=== PATIENT | female | born 1935 | race Caucasian/White ===

== ENCOUNTER 2024-02-24 05:17 | Inpatient (IN) | payer MEDICARE, BC, SELFPAY ==
[2024-02-23 22:32] VITALS: BP 133/68
[2024-02-23 22:52] LABS: Urine Albumin Negative (Neg - Trace); Urine Bilirubin Negative (Negative); Urine Character Very Cloudy (Clear); Urine Color Yellow; Urine Glucose Negative (Negative); Urine Ketone Negative (Negative); Urine Leukocyte 2+ (Negative); Urine Nitrite Positive (Negative); Urine Occult Blood 1+ (Negative); Urine Urobilinogen Negative (Neg - 1+); Urine pH 6.5 (5.0-9.0)
[2024-02-23 23:10] LABS: % Basophils 0.6 % (0-2); % Eosinophils 0.6 % (0-6); % Immature Granulocytes 0.9 % (0-0.5); % Lymphocytes 4.1 % (20.5-51.1); % Neutrophils 91.8 % (42.2-75.2); Absolute Basophils 0.1 10^3/uL (0-0.2); Absolute Eosinophils 0.1 10^3/uL (0-0.7); Absolute Immature Granulocytes 0.1 10^3/uL (0-0.05); Absolute Lymphocytes 0.7 10^3/uL (1.2-3.4); Absolute Monocytes 0.3 10^3/uL (0.1-0.6); Absolute Neutrophils 14.6 10^3/uL (1.4-6.5); Hematocrit 42.1 % (37.0-47.0); Hemoglobin 14.6 g/dL (12.0-16.0); Mean Corp Hgb Conc. 34.7 g/dL (33.0-37.0); Mean Corpuscular Hgb 35.3 pg (27.0-31.0); Mean Corpuscular Volume 101.7 fL (81.0-99.0); Mean Platelet Volume 9.7 fL (7.4-10.4); Nucleated Red Blood Cells % 0 %; Platelet Count 136 10^3/uL (130-400); Red Blood Cell Count 4.14 10^6/uL (4.20-5.40); Red Cell Dist. Width 13.9 % (11.5-14.5); White Blood Cell Count 15.9 10^3/uL (4.8-10.8)
[2024-02-23 23:14] LABS: Lactic Acid 1.8 mmol/L (0.7-2.0)
[2024-02-23 23:16] LABS: Urine Bacteria Many (Negative); Urine Red Blood Cell 0-2 /HPF (0-2); Urine White Cell 30-40 /HPF (0-5)
[2024-02-23 23:16] LABS: ALT (SGPT) 26 U/L (0-35); AST (SGOT) 47 U/L (14-36); Albumin 3.3 g/dl (3.5-5.0); Alkaline Phosphatase 137 U/L (38-126); Blood Urea Nitrogen 14 mg/dl (7-17); Calcium 9.3 mg/dl (8.4-10.2); Carbon Dioxide 27 mmol/L (22-30); Chloride 103 mmol/L (98-107); Glucose 144 mg/dl (70-99); Potassium 3.8 mmol/L (3.5-5.1); Sodium 138 mmol/L (135-145); Total Bilirubin 2.2 mg/dl (0.2-1.3); Total Protein 6.7 g/dl (6.3-8.2); eGFR > 60.00
[2024-02-23] MEDS: NSS 1000 IV (23:18)
[2024-02-23] MEDS: ZOSYN 100 IV (23:30)
--- NOTE | 2024-02-23 23:30 | ED.GENMED ---
History of Present Illness
General
Chief Complaint: Change in Mental Status
Time Seen by Provider: 02/23/24 22:51
History of Present Illness
History of Present Illness:
88-year-old female with history of UTI, COPD, GERD, high blood pressure presenting to the emergency department for change in mental status. Patient arrives from assisted living facility. They note the patient had a fall out of bed, unwitnessed,
concern for left lower extremity skin tear. However when they went to go check on her again, felt that she had a change in her mental status. When son saw her, felt that she was acutely confused, which she has been in the past with urinary tract
infections. Patient on arrival febrile, without knowledge from nursing facility. Son reports that she is AAOx3 at baseline. Patient unable to comply with any additional history given clinical condition
Past History
Past History
ED Past Medical History: HTN and Other (Arthritis, skin cancer.)
ED Past Surgical History: Cholecystectomy, Gynecological (Hysterectomy), Orthopedic (Knee replacements, hip replacement.) and Other (Bladder surgery)
Social History
Tobacco: Non-smoker
Alcohol: None
Drug: None
Living: alone
Employment: Retired
Family History
Family History: Other (Noncontributory)
Phy Exam
Physical Exam
Physical Exam:
General: Dry mucous membrane, restless
HEENT: protecting airway
Neck: appears supple
CV: Tachycardic, regular rhythm, no evidence of cyanosis
Resp: No accessory muscle use, no increased work of breathing, lungs clear to auscultation bilaterally
Abd: Soft and non-distended, no tenderness to palpation, normal bowel sounds
Extremities: No deformities, skin tear to the anterior frazier of the left lower extremity. No obvious deformity or swelling
Neuro: Disoriented to place and time
: deferred
Rectal: deferred
Psych: Normal affect
Skin: Intact
Sepsis
Sepsis Screening
Sepsis Assessment: Sepsis
Sepsis Screen
Sepsis Screen: Sepsis
Date: 02/24/24
Time: 02:57
Course
Orders/Labs/Results
Orders:
Orders
02/23/24 22:31
Electrocardiogram (*1) Urgent
Reason for Study: Other
Other Reason for Exam: Possible Sepsis
Cardiac Monitoring- Treatment ONCE
EKG- Treatment ONCE
IV Insert/Care/Rem.- Treatment PRN
Pulse Ox/cont/shift [RESP] Urgent
Quantity: 1
Special Instructions: CONTINUOUS
02/23/24 22:45
Urinalysis Reflex To Culture Urgent
Date Specimen was Collected: 02/23/24
Time Specimen was Collected: 22:31
Urine Microscopic Reflex Cult Urgent
Urine Culture Urgent
ANAY Source: U
Specimen Description:
Date Specimen was Collected: 02/23/24
Time Specimen was Collected: 22:31
02/23/24 22:49
Complete Blood Count/With Diff Urgent
Comprehensive Metabolic Panel Urgent
Lactic Acid Q4H
Comment: ON ICE, CANCEL 2ND ORDER IF FIRST LACTIC ACID LEVEL <2
02/23/24 22:53
0.9% Sodium Chloride 1000 ml [Nss] 1,000 ml IV BOLUS
02/23/24 23:13
Acetaminophen [Tylenol] 1,000 mg PO NOW STA
Piperacillin/Tazo 4.5 Gram [Zosyn] 4.5 gram in 100 ml IV NOW
02/23/24 23:23
Blood Culture Routine
ANAY Source: Blood/Venous
Specimen Description:
Blood Culture Urgent
ANAY Source: Blood/Venous
Specimen Description:
02/24/24 00:02
CT Head W/o Iv Contrast Urgent
Reason For Exam: fall, unwitnessed
02/24/24 02:08
0.9% Sodium Chloride 1000 ml [Nss] 1,000 ml IV BOLUS
Abnormal Lab Results
02/23/24 02/23/24
22:45 22:49
WBC 15.9 H 10^3/uL
(4.8-10.8)
RBC 4.14 L 10^6/uL
(4.20-5.40)
MCV 101.7 H fL
(81.0-99.0)
MCH 35.3 H pg
(27.0-31.0)
Abs Immat Gran (auto) 0.1 H 10^3/uL
(0-0.05)
Absolute Neuts (auto) 14.6 H 10^3/uL
(1.4-6.5)
Absolute Lymphs (auto) 0.7 L 10^3/uL
(1.2-3.4)
Immature Gran % 0.9 H %
(0-0.5)
Neutrophils % 91.8 H %
(42.2-75.2)
Lymphocytes % 4.1 L %
(20.5-51.1)
Glucose 144 H mg/dl
(70-99)
Total Bilirubin 2.2 H mg/dl
(0.2-1.3)
AST 47 H U/L
(14-36)
Alkaline Phosphatase 137 H U/L
(38-126)
Albumin 3.3 L g/dl
(3.5-5.0)
Ur Occult Blood Reflex 1+ A
(Negative)
Urine Nitrite (Reflex) Positive A
(Negative)
Leukocyte Esterase Rfl 2+ A
(Negative)
Urine WBC (Reflex) 30-40 A /HPF
(0-5)
Urine Bacteria (Reflex) Many A
(Negative)
02/23/24 22:49
02/23/24 22:49
Vital Signs
Initial and Last Documented VS:
Initial Vital Signs
Temp Pulse Resp BP Pulse Ox
102 F H 121 24 133/68 95
02/23/24 22:32 02/23/24 22:32 02/23/24 22:32 02/23/24 22:32 02/23/24 22:32
Last Documented Vital Signs
Temp Pulse Resp BP Pulse Ox
97.8 F 94 30 99/55 93
02/24/24 00:53 02/24/24 02:38 02/24/24 02:38 02/24/24 02:38 02/24/24 02:35
MDM/Problems Addressed
MDM/Problems Addressed:
88-year-old female with history of COPD, hypertension, hyperlipidemia, frequent UTIs presenting for fall, change in mental status. Vital signs on arrival significant for fever and tachycardia.
On exam patient appears dehydrated, dry mucous membranes. She is restless, disoriented. Son is at bedside, reports that she was last normal around 2 PM. He reports that she has had the same behavior in the past with urinary tract infections. In
the setting of fever and tachycardia, meeting SIRS criteria. Suspect that patient's symptoms are secondary to underlying infection. Plan for laboratory analysis, blood cultures, urinalysis, lactic acid. Will start patient on IV fluids. Given
unwitnessed fall, will obtain CT brain, however no signs of head trauma. Only sign of trauma is skin tear to the left lower extremity without additional deformity or swelling.
23:30 -urine is positive for infection. Lactic acid within normal limits. Blood pressure remained stable, without concern for severe sepsis or septic shock. Will continue fluids as clinically indicated. Plan for admission after CT brain imaging.
Broad-spectrum antibiotics ordered.
*Critical Care Note
Total Time (30-74mins, 75-104mins- exclusive of procedures): 35
comment:
The high probability of a clinically significant, sudden or life threatening deterioration of the cardiovascular/distributive system(s) required my full and direct attention, intervention and personal management. The aggregate critical care time was
35 minutes. This time is in addition to time spent performing reported procedures but includes the following:
[x] Data Review and interpretation
[x] Patient assessment and monitoring of vital signs
[x] Documentation
[x] Medication orders and management
ED Attending Note
-
Portions of this chart may have been created with voice recognition software.� Occasional wrong word or��sound alike� substitutions may have occurred due to the inherent limitations of voice recognition software.
Discharge Plan
Departure
Patient Disposition: Admit
Date of Disposition: 02/24/24
Time of Disposition: 01:33
Presentation/result/management discussed w/ accepting MD/DO: Hospitalist
Condition: Fair
Discharge Problem:
Sepsis, Acute UTI, Altered mental status
Prescriptions:
No Action
losartan 25 MG tablet
25 mg PO DAILY
fluticasone propion-salmeterol [Wixela Inhub] 250-50 mcg/dose Blister With Device
1 inh INHALATION R BID
sennosides [senna] 8.6 mg Tablet
17.2 mg PO Q12H PRN (Reason: constipation)
sennosides [senna] 8.6 mg Tablet
8.6 mg PO DAILY
polyvinyl alcohol [Artificial Tears (polyvin alc)] 1.4 % Drops
1 drp BOTH EYES BID
aspirin 81 mg tablet,delayed release (DR/EC)
81 mg PO DAILY
bismuth subsalicylate [Pepto-Bismol] 262 mg/15 mL Suspension
524 mg PO Q3H PRN (Reason: heartburn/indigestion)
methenamine mandelate 1 gram tablet
1 g PO BID
ibuprofen 200 mg Tablet
400 mg PO Q6H PRN (Reason: inflammatory pain)
docusate sodium 100 mg Capsule
100 mg PO DAILY
pseudoephedrine HCl [Sudogest] 30 mg Tablet
30 mg PO Q6H PRN (Reason: sinuses)
furosemide 20 mg Tablet
20 mg PO .2X WEEKLY
metoprolol succinate 25 mg tablet extended release 24 hr
25 mg PO DAILY
ergocalciferol (vitamin D2) 1,250 mcg (50,000 unit) Capsule
1,250 mcg PO Q3W
nystatin 100,000 unit/gram Powder
1 applic TOPICAL Q12H PRN (Reason: redness to abd, folds, groin)
estradiol 0.01 % (0.1 mg/gram) cream
1 appful VAGINAL WESA
cranberry extract [Cranberry Concentrate] 500 mg capsule
500 mg PO DAILY
solifenacin 10 mg tablet
10 mg PO HS
Chloraseptic Sore Throat 6-10 mg Lozenge
1 estrella MUCOUS MEMBRANE Q2 PRN (Reason: sore throat)
omega 8-unh-uwm-fish oil [Fish Oil] 1,000 mg (120 mg-180 mg) Capsule
2 cap PO DAILY
OcuSoft Lid Scrub Pads, Medicated
1 pad TOPICAL DAILY
albuterol sulfate [Ventolin HFA] 90 MCG/PUFF HFA aerosol inhaler
2 puff inhalation Q12 PRN (Reason: copd)
Rx Instructions:
Please follow up with your PCP/ manager rn on this
primidone 50 mg Tablet
100 mg PO HS
acetaminophen [Tylenol] 325 mg Tablet
650 mg PO Q4H PRN (Reason: mild pain)
dextromethorphan-guaifenesin [Guaifenesin DM] 10-100 mg/5 mL Syrup
5 ml PO Q4H PRN (Reason: cough)
bisacodyl [Dulcolax (bisacodyl)] 10 mg Suppository
10 mg AK DAILY PRN (Reason: constipation)
Fleet Enema 19-7 gram/118 mL Enema
118 ml AK Q4D PRN (Reason: constipation)
clotrimazole 1 % Cream
1 applic TOPICAL BID
Rx Instructions:
groin and under breasts
Referrals:
Roberta Moreno MD [Family Provider] -
Interventions
Interventions:
*Risk Screen - Suicide Last Done: 02/23/24 22:32
*General Assessment Last Done: 02/23/24 22:32
*Neglect/Abuse Screening Last Done: 02/23/24 22:32
*ED COVID-19 Vaccine History Last Done: 02/23/24 22:32
ED- Pulmonary Assessment Last Done: 02/23/24 23:10
ED- Neurological Assessment Last Done: 02/23/24 23:10
ED- Cardiac Assessment Last Done: 02/23/24 23:10
ED Swallowing Screen Last Done: 02/23/24 23:10
Discharge Date and Time
Print Language: YAKUT
[2024-02-23] MEDS: TYLENOL 1000 MG PO (23:37)
[2024-02-23 23:41] VITALS: BP 121/69
[2024-02-24] VITALS (14 sets, daily range): BP systolic 91–139; BP diastolic 42–84; PULSE 81; O2SAT 98; BMI 37.8
[2024-02-24] MEDS: NSS 1000 IV ×3 (02:10→18:15)
[2024-02-24 03:50] LABS: COVID-19 Antigen Negative (Negative)
--- NOTE | 2024-02-24 04:43 | HPS.HSE ---
Family Physician
-
Family Physician: Roberta Moreno
Chief Complaint
-
Fall / Confusion
History of Present Illness
Patient is an 88y F with PMH significant for hypertension, DM-II and COPD who presents to ED for evaluation after fall at assisted living this evening. History obtained from patient, ED staff and review of AL documentation. Patient was found
down at [place] around 6:30PM. Fall was unwitnessed. Patient states that she was in her recliner and she fell when trying to get up to go to the bathroom. She had a noted wound / skin tear to the L lower leg but no other appreciable injuries / evident
trauma. Patent was felt to be more confused than usual as well and was sent to the ED for further evaluation and treatment.
In the ED, patient was noted to be febrile to 102 degrees. Son reports similar symptoms in the past related to infections.
At the time of my examination patient is awake and alert and perhaps mildly confused. She denies any pain. She denies any recent illness or complaints - including any urinary symptoms.
Medical History
Past Medical History
Past Medical History: Reports Other
Additional Past Medical History:
Hypertension
Obesity
COPD
DM-II
OAB
Past Surgical History: Reports Other
Additional Past Surgical History:
Hysterectomy
Cholecystectomy
TKA
PETEY
Social History
Tobacco: Non-smoker
Alcohol: None
Drug: None
Family History
Family History: Not pertinent
Allergies / Home Medications
Allergies reflects when Allergies were last updated in [facility].
Home Medications with original date entered in [facility]
Allergy/Medication List:
Allergies
Allergy/AdvReac Type Severity Reaction Status Date / Time
adhesive Allergy TAPE-BLISTE Verified 03/06/18 17:22
RS
caffeine Allergy PALPITATION Verified 03/06/18 17:22
S
codeine Allergy PALPITATION Verified 03/06/18 17:22
S
diphenhydramine HCl Allergy HYPERACTIVE Verified 03/06/18 17:22
[From Benadryl]
Iodinated Contrast Media Allergy Hives Verified 03/06/18 17:22
[Iodinated Contrast Media -
IV Dye]
iodine Allergy Unknown Verified 03/06/18 17:22
morphine Allergy prolonged Verified 03/06/18 17:22
awakening
after
dosing
pseudoephedrine Allergy PALPITATION Verified 03/06/18 17:22
S
Sulfa (Sulfonamide Allergy Hives Verified 03/06/18 17:22
Antibiotics)
Home Medications
losartan 25 mg tablet 25 mg PO DAILY Blood Pressure 02/20/14
albuterol sulfate 90 mcg/actuation aerosol inhaler (Ventolin HFA) 2 puff inhalation Q12 PRN copd 05/01/23
aspirin 81 mg tablet,delayed release 81 mg PO DAILY Blood Clot Prevention/Tx 05/01/23
benzocaine 6 mg-menthol 10 mg lozenges (Chloraseptic Sore Throat) 1 estrella mucous membrane Q2 PRN sore throat 05/01/23
bismuth subsalicylate 262 mg/15 mL oral suspension (Pepto-Bismol) 524 mg PO Q3H PRN heartburn/indigestion 05/01/23
cranberry extract 500 mg capsule (Cranberry Concentrate) 500 mg PO DAILY Supplement 05/01/23
docusate sodium 100 mg capsule 100 mg PO DAILY Constipation 05/01/23
ergocalciferol (vitamin D2) 1,250 mcg (50,000 unit) capsule 1,250 mcg PO Q3W Supplement 05/01/23
estradiol 0.01% (0.1 mg/gram) vaginal cream 1 appful vaginal WESA Hormonal Agent 05/01/23
eyelid cleanser combination 5 (OcuSoft Lid Scrub topical pads) 1 pad topical DAILY Eye Condition 05/01/23
fluticasone 250 mcg-salmeterol 50 mcg/dose blistr powdr for inhalation (Wixela Inhub) 1 inh inhalation R BID Lung/Breathing Issues 05/01/23
furosemide 20 mg tablet 20 mg PO .2X WEEKLY Fluid Retention/Swelling 05/01/23
ibuprofen 200 mg tablet 400 mg PO Q6H PRN inflammatory pain 05/01/23
methenamine mandelate 1 gram tablet 1 g PO BID Urinary Issue 05/01/23
metoprolol succinate 25 mg tablet,extended release 24 hr 25 mg PO DAILY Blood Pressure 05/01/23
nystatin 100,000 unit/gram topical powder 1 applic topical Q12H PRN redness to abd, folds, groin 05/01/23
omega 0-dqo-gvl-fish oil 1,000 mg (120 mg-180 mg) capsule (Fish Oil) 2 cap PO DAILY Supplement 05/01/23
polyvinyl alcohol 1.4 % eye drops (Artificial Tears (polyvinyl alcohol)) 1 drp BOTH EYES BID Eye Condition 05/01/23
pseudoephedrine HCl 30 mg tablet (Sudogest) 30 mg PO Q6H PRN sinuses 05/01/23
sennosides 8.6 mg tablet (senna) 8.6 mg PO DAILY Constipation 05/01/23
sennosides 8.6 mg tablet (senna) 17.2 mg PO Q12H PRN constipation 05/01/23
solifenacin 10 mg tablet 10 mg PO HS Urinary Issue 05/01/23
acetaminophen 325 mg tablet (Tylenol) 650 mg PO Q4H PRN mild pain 02/23/24
bisacodyl 10 mg rectal suppository (Dulcolax (bisacodyl)) 10 mg SC DAILY PRN constipation 02/23/24
clotrimazole 1 % topical cream 1 applic topical BID 02/23/24
dextromethorphan-guaifenesin 10 mg-100 mg/5 mL oral syrup 5 ml PO Q4H PRN cough 02/23/24
primidone 50 mg tablet 100 mg PO HS 02/23/24
sodium phosphates 19 gram-7 gram/118 mL enema (Fleet Enema) 118 ml SC Q4D PRN constipation 02/23/24
Review of Systems
-
History Source: Patient
A 12 point ROS was completed and negative except as noted: Yes
Constitutional: Reports Fatigue; Denies Fever or Chills
EENT: Denies Sore Throat
Respiratory: Denies Cough or Trouble Breathing
Cardiac: Denies Chest Pain or Palpitations
Abdomen/GI: Denies Abdominal Pain, Nausea, Vomiting or Diarrhea
: Denies Dysuria, Frequency or Flank Pain
Musculoskeletal: Denies Joint Pain or Edema
Skin: Reports Other (LLE wound)
Neurological: Denies Dizzy or Headache
Psych: Denies Depression or Anxiety
Physical Exam
Vital Signs
Vital Signs
Temp Pulse Resp BP Pulse Ox
97.8 F 85 15 95/55 97
02/24/24 00:53 02/24/24 04:00 02/24/24 04:00 02/24/24 04:00 02/24/24 04:00
Physical Exam
General: Other (88y F in no distress.)
HEENT: PERRLA and Other (Dry MM. Thick neck.)
Respiratory: Other (Decreased at bases - otherwise clear. No wheezing.)
Cardiac: S1/S2 and Tachycardia; No Murmur
GI: Soft, Non Tender, Non Distended and Normal Bowel Sounds
Genito-urinary: No costovertebral tender
Musculoskeletal: No Clubbing, No Cyanosis and Other (Chronic venous stasis skin changes. Skin tear L medial lower leg with dressing in place / mild strikethrough.)
Neuro: AO x 3 and Nonfocal/grossly intact
Laboratory Results
-
02/23/24 22:49
02/23/24 22:49
Laboratory Results
Lactic Acid Cancelled 02/24/24 02:45
Total Bilirubin 2.2 mg/dl (0.2-1.3) H 02/23/24 22:49
AST 47 U/L (14-36) H 02/23/24 22:49
ALT 26 U/L (0-35) 02/23/24 22:49
Alkaline Phosphatase 137 U/L (38-126) H 02/23/24 22:49
Impression/Plan
-
A/P: Patient is an 88y F with PMH significant for HTN, DM-II and COPD who presents to ED for evaluation of fall and noted confusion.
UTI
Sepsis secondary to the above
Acute TME secondary to the above
- Admit for further evaluation and treatment.
- Febrile to 102 and UA consistent with infection - though patient denies any urinary symptoms.
- Other evaluation unremarkable thus far (COVID, influenza, CXR, etc).
- IV abx with ceftriaxone pending culture data (patient received cephalosporins last admission here without issue - cephalosporins removed from allergy list).
- IVF support, antipyretics, etc.
- Follow for clinical improvement.
- Follow-up culture data and adjust regimen as appropriate.
Fall at Home
LLE Skin Tear
Chronic Venous Stasis Skin Changes
- Patient notes that she 'slid' from her recliner while trying to get up to use the bathroom.
- Found down by staff and noted to have L lower leg skin tear.
- Wound Care evaluation for local care recs.
- No other noted injuries.
Benign Hypertension
- BP on the lower side in the ED / with sepsis.
- Hold BP medications acutely and resume when appropriate.
DM-II
- Stable. Dx listed on assisted living record - though on no DM meds, restricted diet, etc.
- Follow glucose and cover with SSI if needed.
- Check A1C to determine +/- DM diagnosis.
COPD without Acute Exacerbation
- Stable. No wheezing, cough, etc.
- Continue inhaled medications.
OAB
- Hold Vesicare given active infection.
- Would consider complete cessation if UTIs are frequent.
Obesity due to excess calories
- Affects all aspects of care.
- Encourage healthy diet and increased activity with goal of weight loss.
DVT Prophylaxis: Lovenox
Code Status: DNR
--- NOTE | 2024-02-24 07:46 | W.PN.HOSP.TC ---
Today's Communication/Plan
-
see A/P
Assessment / Plan
Assessment / Plan
88y F with PMH significant for hypertension, DM-II and COPD who presented to ED for evaluation after fall at assisted living in the evening. History obtained from patient, ED staff and review of AL documentation. Patient was found down at [place]
around 6:30PM. Fall was unwitnessed. Patient states that she was in her recliner and she fell when trying to get up to go to the bathroom. She had a noted wound / skin tear to the L lower leg but no other appreciable injuries / evident trauma.
Patent was felt to be more confused than usual as well and was sent to the ED for further evaluation and treatment.
In the ED, patient was noted to be febrile to 102 degrees. Son reports similar symptoms in the past related to infections.
At the time of examination, patient is awake and alert and perhaps mildly confused. She denies any pain. She denies any recent illness or complaints - including any urinary symptoms.
A/P:
# UTI
# Sepsis secondary to the above
# Acute metabolic encephalopathy secondary to the above
Febrile to 102 and UA consistent with infection - though patient denies any urinary symptoms.
Other evaluation unremarkable thus far (COVID, influenza, CXR, etc).
Cont IV abx with ceftriaxone pending culture data (patient received cephalosporins last admission here without issue- cephalosporins removed from allergy list).
Cont IVF support, antipyretics, etc.
Follow for clinical improvement.
Follow-up culture data and adjust regimen as appropriate.
# Fall at Home
# LLE Skin Tear
# Chronic Venous Stasis Skin Changes
Patient notes that she 'slid' from her recliner while trying to get up to use the bathroom.
Found down by staff and noted to have L lower leg skin tear.
Wound Care evaluation for local care recs.
No other noted injuries.
PT OT eval
# Benign Hypertension
BP on the lower side in the ED / with sepsis.
Hold BP medications acutely and resume when appropriate.
# DM-II
Stable. Dx listed on assisted living record - though on no DM meds, restricted diet, etc.
Follow glucose and cover with SSI if needed.
Check A1C to determine +/- DM diagnosis.
# COPD without Acute Exacerbation
Stable. No wheezing, cough, etc.
Continue inhaled medications.
# OAB
Hold Vesicare given active infection.
Would consider complete cessation if UTIs are frequent.
# Obesity due to excess calories
Affects all aspects of care.
Encourage healthy diet and increased activity with goal of weight loss.
DVT Prophylaxis: Lovenox
Code Status: DNR
Anticipated Discharge: > 48 hours
Subjective/Interval History
-
Date of Service: February 24, 2024
Objective Data
-
Labs:
Laboratory Results
02/23/24
22:49
WBC 15.9 H
Hgb 14.6
Hct 42.1
Plt Count 136
Sodium 138
Potassium 3.8
Chloride 103
Carbon Dioxide 27
BUN 14
Creatinine 0.6
Glucose 144 H
Calcium 9.3
Total Bilirubin 2.2 H
AST 47 H
ALT 26
Alkaline Phosphatase 137 H
Vital Signs:
Vital Signs
Temp Pulse Resp BP Pulse Ox
36.6 C 78 29 100/56 96
02/24/24 00:53 02/24/24 06:15 02/24/24 06:15 02/24/24 06:00 02/24/24 06:15
Review of Systems
-
History Source: Patient
All other systems: Reviewed and negative
Physical Exam
-
General: Well Developed, Well Nourished, No Apparent Distress, Comfortable and Obese
HEENT: Normocephalic and Atraumatic
Respiratory: Clear to Auscultation and Non Labored Respirations; Negative Wheezes or Accessory Resp Muscle Use
Cardiac: Regular Rhythm and S1/S2
GI: Soft and Nontender
Skin: Warm and Dry; Negative Rash
Neuro: Awake, Alert and Other (tremors, baseline )
Psych: Calm and Intact Judgement/Insight
Data Reviewed
-
Labs: Labs Reviewed by me
[2024-02-24] MEDS: STERILE WATER FOR INJECTION 10 ML IV (09:12)
[2024-02-24] MEDS: NOVOLOG FLEXPEN-LOW RESISTANCE SC ×2 (09:12→18:16)
[2024-02-24] MEDS: ASPIR LOW (ENTERIC COATED) 81 MG PO (09:12)
[2024-02-24 09:13] LABS: Glucose - Point of Care 105 mg/dl (70-99)
[2024-02-24] MEDS: ROCEPHIN 1000 MG IV (09:13)
[2024-02-24] MEDS: ADVAIR HFA 115/21 MCG INHALER 2 PUFF INH ×2 (11:09→20:29)
--- NOTE | 2024-02-24 11:43 | PTCARENOTE ---
Patient admitted into room 402-02 from ER. Vital signs stable. IVF started. Pure Wick removed. Plan of care reviewed with patient. Reviewed use of call grullon and TV and bed controls. Patient verbalizes understanding of all teaching. Denies pain or
other issues. Patient assisted to chair with use of rolling walker. Resting comfortably at this time.
[2024-02-24] MEDS: DESENEX/MITRAZOL/ZEASORB 1 APPLIC TOPICAL ×2 (11:46→22:06)
[2024-02-24 12:19] LABS: Glucose - Point of Care 186 mg/dl (70-99)
[2024-02-24] MEDS: NOVOLOG FLEXPEN-LOW RESISTANCE 1 UNITS SC (12:23)
[2024-02-24] MEDS: LOVENOX 40 MG SC (18:00)
[2024-02-24 18:07] LABS: Glucose - Point of Care 102 mg/dl (70-99)
[2024-02-24] MEDS: ADVAIR HFA 115/21 MCG INHALER INH (20:25)
[2024-02-24 21:41] LABS: Glucose - Point of Care 202 mg/dl (70-99)
[2024-02-24] MEDS: SENOKOT 8.6 MG PO (22:04)
[2024-02-24] MEDS: MYSOLINE 100 MG PO (22:04)
[2024-02-25] VITALS (8 sets, daily range): BP systolic 116–159; BP diastolic 59–101; PULSE 85–112; BMI 37.1
[2024-02-25] MEDS: NSS 1000 IV (05:51)
[2024-02-25 07:16] LABS: Glucose - Point of Care 81 mg/dl (70-99)
[2024-02-25] MEDS: NOVOLOG FLEXPEN-LOW RESISTANCE SC ×3 (07:45→17:11)
[2024-02-25] MEDS: ADVAIR HFA 115/21 MCG INHALER 2 PUFF INH ×2 (07:57→19:52)
[2024-02-25 08:51] LABS: Hematocrit 34.9 % (37.0-47.0); Mean Corp Hgb Conc. 34.4 g/dL (33.0-37.0); Mean Corpuscular Hgb 34.2 pg (27.0-31.0); Mean Corpuscular Volume 99.4 fL (81.0-99.0); Mean Platelet Volume 10.5 fL (7.4-10.4); Platelet Count 115 10^3/uL (130-400); Red Blood Cell Count 3.51 10^6/uL (4.20-5.40); Red Cell Dist. Width 14.2 % (11.5-14.5); White Blood Cell Count 9.5 10^3/uL (4.8-10.8)
[2024-02-25] MEDS: ROCEPHIN 1000 MG IV (09:12)
[2024-02-25] MEDS: STERILE WATER FOR INJECTION 10 ML IV (09:12)
[2024-02-25] MEDS: ASPIR LOW (ENTERIC COATED) 81 MG PO (09:12)
[2024-02-25] MEDS: DESENEX/MITRAZOL/ZEASORB 1 APPLIC TOPICAL ×2 (09:15→21:07)
--- NOTE | 2024-02-25 09:17 | W.PN.HOSP.TC ---
Today's Communication/Plan
-
see A/P
Assessment / Plan
Assessment / Plan
88y F with PMH significant for hypertension, DM-II and COPD who presented to ED for evaluation after fall at assisted living in the evening. History obtained from patient, ED staff and review of AL documentation. Patient was found down at [place]
around 6:30PM. Fall was unwitnessed. Patient states that she was in her recliner and she fell when trying to get up to go to the bathroom. She had a noted wound / skin tear to the L lower leg but no other appreciable injuries / evident trauma.
Patent was felt to be more confused than usual as well and was sent to the ED for further evaluation and treatment.
In the ED, patient was noted to be febrile to 102 degrees. Son reports similar symptoms in the past related to infections.
At the time of examination, patient is awake and alert and perhaps mildly confused. She denies any pain. She denies any recent illness or complaints - including any urinary symptoms.
A/P:
# UTI
# Sepsis secondary to the above
# Acute metabolic encephalopathy secondary to the above
Febrile to 102 and UA consistent with infection - though patient denies any urinary symptoms.
Other evaluation unremarkable thus far (COVID, influenza, CXR, etc).
Admission blood culture positive for GNR, check repeat blood culture 02/24
Follow urine Cx
Cont IV abx with ceftriaxone pending culture data (patient received cephalosporins last admission here without issue- cephalosporins removed from allergy list).
Hold further IVF support,
Cont antipyretics etc.
Follow for clinical improvement.
# Fall at Home
# LLE Skin Tear
# Chronic Venous Stasis Skin Changes
Patient notes that she 'slid' from her recliner while trying to get up to use the bathroom.
Found down by staff and noted to have L lower leg skin tear.
Wound Care evaluation for local care recs. No other noted injuries.
PT OT recc SNF vs
# Benign Hypertension
BP improved from admission
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
# DM-II
Stable. Dx listed on assisted living record - though on no DM meds, restricted diet, etc.
Follow glucose and cover with SSI if needed.
Check A1C to determine +/- DM diagnosis.
# COPD without Acute Exacerbation
Stable. No wheezing, cough, etc.
Continue inhaled medications.
# OAB
Hold Vesicare given active infection. Would consider complete cessation if UTIs are frequent.
# Obesity due to excess calories
Affects all aspects of care.
Encourage healthy diet and increased activity with goal of weight loss.
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
Check Hepatitis panel and HIV status of patient
DVT Prophylaxis: Lovenox
Code Status: DNR
DW RN
Anticipated Discharge: 24 - 48 hours
Subjective/Interval History
-
Date of Service: February 25, 2024
Objective Data
-
Labs:
Laboratory Results
02/25/24
07:56
WBC 9.5
Hgb 12.0
Hct 34.9 L
Plt Count 115 L
Sodium Pending
Potassium Pending
Chloride Pending
Carbon Dioxide Pending
BUN Pending
Creatinine Pending
Glucose Pending
Calcium Pending
Vital Signs:
Vital Signs
Temp Pulse Resp BP Pulse Ox
36.4 C 90 16 143/70 96
02/25/24 07:45 02/25/24 08:01 02/25/24 08:01 02/25/24 07:45 02/25/24 08:01
I&O
02/24/24 02/25/24 02/26/24
06:59 06:59 06:59
Intake Total 500 / 500
Balance 500 / 500
Review of Systems
-
History Source: Patient
All other systems: Reviewed and negative
Physical Exam
-
General: Well Developed, Well Nourished, No Apparent Distress, Comfortable and Obese
HEENT: Normocephalic and Atraumatic
Respiratory: Clear to Auscultation and Non Labored Respirations; Negative Wheezes or Accessory Resp Muscle Use
Cardiac: Regular Rhythm and S1/S2
GI: Soft and Nontender
Skin: Warm and Dry; Negative Rash
Neuro: Awake, Alert and Other (tremors, baseline )
Psych: Calm and Intact Judgement/Insight (somewhat)
Data Reviewed
-
Labs: Labs Reviewed by me
[2024-02-25 09:20] LABS: Blood Urea Nitrogen 14 mg/dl (7-17); Calcium 8.5 mg/dl (8.4-10.2); Carbon Dioxide 27 mmol/L (22-30); Chloride 109 mmol/L (98-107); Estimated Creatinine Clearance 72 ml/min; Glucose 79 mg/dl (70-99); Potassium 3.7 mmol/L (3.5-5.1); Sodium 141 mmol/L (135-145); eGFR > 60.00
[2024-02-25 11:53] LABS: Glucose - Point of Care 139 mg/dl (70-99)
[2024-02-25 12:59] LABS: Glycohemoglobin (HgbA1c) 5.1 % (4.0-5.6)
--- NOTE | 2024-02-25 15:31 | CM ---
Addendum entered by Leslye Gerard 02/25/24 15:39:
Call rich [phone]/fax is [phone] please fax clinical information when patient is ready for discharge. [facility] can be reached by phone but all scripts is not accessible tomorrow.
Addendum entered by Leslye Gerard 02/25/24 15:36:
patient has a wedding coming up per the facility. Patient mostly is in a wheelchair but uses walker with restorative therapy. Patient does not have part B at this time per [facility] in [facility].
Original Note:
Patient seen at bedside. Patient states that she was in the personal care at [facility] but they no longer have personal care and she is considered to be in Skilled. Patient states that she is LTC there and that she lost her teeth prior to
admission to hospital. Patient indicated that she was excited to return to the SNF. CM will call to facility and leave message asking for prior level of care and Bed hold status, await response. CM will continue to follow for discharge planning
needs.
Plan; return to [facility]; [facility]
[2024-02-25 17:07] LABS: Glucose - Point of Care 138 mg/dl (70-99)
[2024-02-25] MEDS: LOVENOX 40 MG SC (17:39)
[2024-02-25] MEDS: MYSOLINE 100 MG PO (21:06)
[2024-02-25] MEDS: SENOKOT 8.6 MG PO (21:07)
[2024-02-25 21:24] LABS: Glucose - Point of Care 103 mg/dl (70-99)
[2024-02-26] VITALS (7 sets, daily range): BP systolic 106–172; BP diastolic 56–96; PULSE 95; BMI 37.5
[2024-02-26] MEDS: ADVAIR HFA 115/21 MCG INHALER 2 PUFF INH ×2 (07:38→20:02)
[2024-02-26 07:44] LABS: Glucose - Point of Care 78 mg/dl (70-99)
[2024-02-26] MEDS: NOVOLOG FLEXPEN-LOW RESISTANCE SC ×3 (08:21→16:55)
[2024-02-26] MEDS: TOPROL XL 25 MG PO (08:22)
[2024-02-26] MEDS: ASPIR LOW (ENTERIC COATED) 81 MG PO (08:22)
[2024-02-26] MEDS: COZAAR 25 MG PO (08:22)
[2024-02-26] MEDS: DESENEX/MITRAZOL/ZEASORB 1 APPLIC TOPICAL ×2 (08:23→21:14)
[2024-02-26] MEDS: ROCEPHIN 1000 MG IV (08:23)
[2024-02-26] MEDS: STERILE WATER FOR INJECTION 10 ML IV (08:23)
[2024-02-26] MEDS: TYLENOL 650 MG PO (08:27)
[2024-02-26 08:40] LABS: Blood Urea Nitrogen 13 mg/dl (7-17); Calcium 8.5 mg/dl (8.4-10.2); Carbon Dioxide 22 mmol/L (22-30); Chloride 108 mmol/L (98-107); Estimated Creatinine Clearance 73 ml/min; Glucose 85 mg/dl (70-99); Potassium 3.9 mmol/L (3.5-5.1); Sodium 137 mmol/L (135-145); eGFR > 60.00
--- NOTE | 2024-02-26 08:50 | WOUNDNOTE ---
LLE (ANTERIOR LOWER)
--- NOTE | 2024-02-26 08:57 | WOUNDNOTE ---
[facility] RN note: Patient admitted with UTI, sepsis. Patient slide from her recliner at [facility].
See H&P for complete history.
PMH: HTN, NH, COPD, obesity, DM, TKA, PETEY, venous stasis, uses walker and wheelchair.
Wound Location and type/assessment: Patient admitted with: dermal skin tear LLE, pink, small ss drainage. Trace LE edema. +Palpable pedal pulses, L heel blanchable red. Sacrum mild red and intact. Multiple bruises arms and legs. Mild MASD abdominal
folds.
Appetite: good.
Pressure redistribution devices in place: [employer] Accumax. Patient stated she can turn in bed. She stood with walker during sacral skin assessment.
Plan: Patient incontinent of urine. Melissa care given. LLE dressing changed. Instructed patient heel elevation and pressure injury prevention measures, uses of air chair cushion.
Will confirm orders with Dr. Huizar and discussed with HODAN Paredes.
Care plan updated and will follow as needed.
Recommend follow up at wound care center upon discharge.
--- NOTE | 2024-02-26 09:52 | PTCARENOTE ---
pt aaox3 forgetful at times. oob in chair with walker. wound care done by wound are RN. pt states 10/12 headache tylenol given as ordered.
[2024-02-26 09:53] LABS: Hematocrit 34.9 % (37.0-47.0); Hemoglobin 12.1 g/dL (12.0-16.0); Mean Corp Hgb Conc. 34.7 g/dL (33.0-37.0); Mean Corpuscular Hgb 34.3 pg (27.0-31.0); Mean Corpuscular Volume 98.9 fL (81.0-99.0); Mean Platelet Volume 10.8 fL (7.4-10.4); Platelet Count 111 10^3/uL (130-400); Red Blood Cell Count 3.53 10^6/uL (4.20-5.40); Red Cell Dist. Width 14.3 % (11.5-14.5); White Blood Cell Count 7.3 10^3/uL (4.8-10.8)
--- NOTE | 2024-02-26 12:49 | W.PN.HOSP.TC ---
Today's Communication/Plan
-
continue IV abx until final cultures available
Assessment / Plan
Assessment / Plan
88y F with PMH significant for hypertension, DM-II and COPD who presented to ED for evaluation after fall at assisted living in the evening. History obtained from patient, ED staff and review of AL documentation. Patient was found down at [place]
around 6:30PM. Fall was unwitnessed. Patient states that she was in her recliner and she fell when trying to get up to go to the bathroom. She had a noted wound / skin tear to the L lower leg but no other appreciable injuries / evident trauma.
Patent was felt to be more confused than usual as well and was sent to the ED for further evaluation and treatment.
In the ED, patient was noted to be febrile to 102 degrees. Son reports similar symptoms in the past related to infections.
At the time of examination, patient is awake and alert and perhaps mildly confused. She denies any pain. She denies any recent illness or complaints - including any urinary symptoms.
Assessment:
E. Coli UTI with bacteremia
Sepsis secondary to the above (fever, leukocytosis)
Acute metabolic encephalopathy secondary to the above
- s/p sepsis protocol IVF
- UA abnormal; awaiting final culture
- repeat Bcx NGTD
- continue Rocephin, day 3
Fall at Home, mechanical in nature (slid down from recliner)
- PT/OT
chronic wounds POA as follows:
Chronic Venous Stasis Skin Changes. dermal skin tear LLE, pink, small ss drainage. Trace LE edema. +Palpable pedal pulses, L heel blanchable red. Sacrum mild red and intact. Multiple bruises arms and legs. Mild MASD abdominal folds.
- follow wound care recs
- check DVT study for LE edema with prior hx of DVT
Benign Hypertension
- continue Losartan, Toprol
DM-II
- Stable. Dx listed on assisted living record - though on no DM meds, restricted diet, etc.
- Follow glucose and cover with SSI if needed.
- A1c 5.1%
COPD without Acute Exacerbation
- Stable. No wheezing, cough, etc.
- Continue inhaled medications.
OAB
- Hold Vesicare given active infection. Would consider complete cessation if UTIs are frequent.
Obesity due to excess calories
- Affects all aspects of care.
- Encourage healthy diet and increased activity with goal of weight loss.
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
- Hepatitis panel and HIV status of patient pending
DVT Prophylaxis: Lovenox
Code Status: DNR
Anticipated Discharge: 24 - 48 hours
Subjective/Interval History
-
Date of Service: February 26, 2024
resting comfortably, no complaints at present
Objective Data
-
Labs:
Laboratory Results
02/26/24
07:18
WBC 7.3
Hgb 12.1
Hct 34.9 L
Plt Count 111 L
Sodium 137
Potassium 3.9
Chloride 108 H
Carbon Dioxide 22
BUN 13
Creatinine 0.5 L
Glucose 85
Calcium 8.5
Vital Signs:
Vital Signs
Temp Pulse Resp BP Pulse Ox
98.1 F 107 16 151/96 95
02/26/24 08:58 02/26/24 08:58 02/26/24 08:58 02/26/24 08:58 02/26/24 08:58
I&O
02/25/24 02/26/24 02/27/24
06:59 06:59 06:59
Intake Total 500 / 500 480 / 480
Balance 500 / 500 480 / 480
Physical Exam
-
General: No Apparent Distress
HEENT: Normocephalic and Atraumatic
Respiratory: Negative Wheezes
Cardiac: Regular Rhythm and S1/S2
GI: Soft
Musculoskeletal: Other (dermal skin tear LLE, pink, small ss drainage. Trace LE edema. L heel blanchable red. Sacrum mild red and intact)
Neuro: AO x 3
Psych: Calm
Data Reviewed
-
Total Time Spent with Patient (in minutes): 42
Labs: Labs Reviewed by me
[2024-02-26 13:01] LABS: Glucose - Point of Care 79 mg/dl (70-99)
[2024-02-26 16:52] LABS: Glucose - Point of Care 105 mg/dl (70-99)
[2024-02-26] MEDS: LOVENOX 40 MG SC (18:03)
[2024-02-26 20:17] LABS: Hepatitis B Surface Antigen Negative (Negative)
[2024-02-26 20:36] LABS: Hepatitis B Core Ab, Total Negative (Negative); Hepatitis B Surface Antibody Negative; Hepatitis C Antibody Negative (Negative)
[2024-02-26 20:37] LABS: Hepatitis A Antibody, Total Negative (Negative)
[2024-02-26 21:06] LABS: Glucose - Point of Care 105 mg/dl (70-99)
[2024-02-26] MEDS: MYSOLINE 100 MG PO (21:08)
[2024-02-26] MEDS: SENOKOT 8.6 MG PO (21:08)
[2024-02-26] MEDS: MOTRIN 400 MG PO (22:10)
[2024-02-26] MEDS: LOPRESSOR 12.5 MG PO (23:31)
[2024-02-27 03:04] VITALS: BP 135/68
[2024-02-27 05:29] VITALS: BMI 36.9
[2024-02-27 07:25] VITALS: BP 138/75
[2024-02-27 07:47] LABS: Glucose - Point of Care 93 mg/dl (70-99)
[2024-02-27] MEDS: ADVAIR HFA 115/21 MCG INHALER 2 PUFF INH ×2 (07:48→19:54)
[2024-02-27] MEDS: NOVOLOG FLEXPEN-LOW RESISTANCE SC ×3 (07:50→17:26)
[2024-02-27] MEDS: COZAAR 25 MG PO (09:04)
[2024-02-27] MEDS: ASPIR LOW (ENTERIC COATED) 81 MG PO (09:05)
[2024-02-27] MEDS: STERILE WATER FOR INJECTION 10 ML IV (09:05)
[2024-02-27] MEDS: TOPROL XL 25 MG PO (09:05)
[2024-02-27] MEDS: ROCEPHIN 1000 MG IV (09:05)
[2024-02-27] MEDS: DESENEX/MITRAZOL/ZEASORB 1 APPLIC TOPICAL ×2 (09:06→21:46)
[2024-02-27 09:11] LABS: Hematocrit 38.1 % (37.0-47.0); Mean Corp Hgb Conc. 34.1 g/dL (33.0-37.0); Mean Corpuscular Hgb 33.9 pg (27.0-31.0); Mean Corpuscular Volume 99.2 fL (81.0-99.0); Mean Platelet Volume 10.2 fL (7.4-10.4); Platelet Count 112 10^3/uL (130-400); Red Blood Cell Count 3.84 10^6/uL (4.20-5.40); Red Cell Dist. Width 14.3 % (11.5-14.5); White Blood Cell Count 6.7 10^3/uL (4.8-10.8)
[2024-02-27 09:18] LABS: Blood Urea Nitrogen 13 mg/dl (7-17); Calcium 8.8 mg/dl (8.4-10.2); Carbon Dioxide 24 mmol/L (22-30); Chloride 106 mmol/L (98-107); Estimated Creatinine Clearance 72 ml/min; Glucose 82 mg/dl (70-99); Sodium 139 mmol/L (135-145); eGFR > 60.00
[2024-02-27] MEDS: MIRALAX 17 GRAMS PO (09:25)
--- NOTE | 2024-02-27 09:27 | W.PN.HOSP.TC ---
Today's Communication/Plan
-
IV Lasix for edema, update Echo
Assessment / Plan
Assessment / Plan
88y F with PMH significant for hypertension, DM-II and COPD who presented to ED for evaluation after fall at assisted living in the evening. History obtained from patient, ED staff and review of AL documentation. Patient was found down at [place]
around 6:30PM. Fall was unwitnessed. Patient states that she was in her recliner and she fell when trying to get up to go to the bathroom. She had a noted wound / skin tear to the L lower leg but no other appreciable injuries / evident trauma.
Patent was felt to be more confused than usual as well and was sent to the ED for further evaluation and treatment.
In the ED, patient was noted to be febrile to 102 degrees. Son reports similar symptoms in the past related to infections.
At the time of examination, patient is awake and alert and perhaps mildly confused. She denies any pain. She denies any recent illness or complaints - including any urinary symptoms.
Assessment:
E. Coli and multi-drug resistant Klebsiella UTI with bacteremia
Sepsis secondary to the above (fever, leukocytosis)
Acute metabolic encephalopathy secondary to the above
- s/p sepsis protocol IVF
- continue Rocephin, day 4
- repeat Bcx NGTD
Fall at Home, mechanical in nature (slid down from recliner)
- PT/OT - SNF planned
possible acute HFpEF
Iatrogenic volume overload from sepsis protocol IVF
- update Echo
- IV Lasix 20mg; requires intensive monitoring of I/Os, weights, Lytes
- noted to be on PO Lasix twice weekly at [facility]
chronic wounds POA as follows:
Chronic Venous Stasis Skin Changes. dermal skin tear LLE, pink, small ss drainage. Trace LE edema. +Palpable pedal pulses, L heel blanchable red. Sacrum mild red and intact. Multiple bruises arms and legs. Mild MASD abdominal folds.
- follow wound care recs
- DVT study negative for clots
- continue ROBERT wraps per wound care
Benign Hypertension
- continue Losartan, Toprol
DM-II
- Stable. Dx listed on assisted living record - though on no DM meds, restricted diet, etc.
- Follow glucose and cover with SSI if needed.
- A1c 5.1%
COPD without Acute Exacerbation
- Stable. No wheezing, cough, etc.
- Continue inhaled medications.
OAB
- Hold Vesicare given active infection. Would consider complete cessation if UTIs are frequent.
Obesity due to excess calories
- Affects all aspects of care.
- Encourage healthy diet and increased activity with goal of weight loss.
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
- Hepatitis panel negative, HIV status of patient pending
DVT Prophylaxis: Lovenox
Code Status: DNR
Anticipated Discharge: 24 - 48 hours
Subjective/Interval History
-
Date of Service: February 27, 2024
patient reports arm edema and also tracked weights are up
reports 2x/weekly diuretic Lasix therapy
denies any SOB or chest pain
Objective Data
-
Labs:
Laboratory Results
02/27/24
08:11
WBC 6.7
Hgb 13.0
Hct 38.1
Plt Count 112 L
Sodium 139
Potassium 4.0
Chloride 106
Carbon Dioxide 24
BUN 13
Creatinine 0.5 L
Glucose 82
Calcium 8.8
Vital Signs:
Vital Signs
Temp Pulse Resp BP Pulse Ox
98.1 F 69 16 138/75 97
02/27/24 07:25 02/27/24 09:04 02/27/24 07:52 02/27/24 09:04 02/27/24 07:52
I&O
02/26/24 02/27/24 02/28/24
06:59 06:59 06:59
Intake Total 480 / 480 1320 / 1320
Balance 480 / 480 1320 / 1320
Physical Exam
-
General: No Apparent Distress
HEENT: Normocephalic and Atraumatic
Respiratory: Crackles
Cardiac: Regular Rhythm
GI: Soft
Genito-urinary: No Costovertebral Tender
Musculoskeletal: Edema, Right Upper Extrem and Edema, Left Upper Extrem
Neuro: AO x 3
Psych: Calm
Data Reviewed
-
Total Time Spent with Patient (in minutes): 51
Labs: Labs Reviewed by me
[2024-02-27] MEDS: LASIX 20 MG IV (10:59)
[2024-02-27 11:54] VITALS: BP 145/80
[2024-02-27 11:55] LABS: Glucose - Point of Care 142 mg/dl (70-99)
--- NOTE | 2024-02-27 14:33 | CM ---
Addendum entered by Karina Fierro 02/27/24 14:48:
[facility] updated.
Original Note:
Patient still continues with IV diuresis and IV anbx.
PT/OT recommending home health.
patient from [facility].
Ila from [facility] updated.
Plan: return to [facility]
[2024-02-27 15:25] LABS: HIV Combo Negative (Negative)
[2024-02-27 15:44] VITALS: BP 136/75
[2024-02-27 17:22] LABS: Glucose - Point of Care 138 mg/dl (70-99)
[2024-02-27] MEDS: LOVENOX 40 MG SC (17:48)
[2024-02-27] MEDS: SENOKOT 8.6 MG PO (21:36)
[2024-02-27] MEDS: MYSOLINE 100 MG PO (21:36)
[2024-02-27 21:37] LABS: Glucose - Point of Care 121 mg/dl (70-99)
[2024-02-27 23:28] VITALS: BP 148/79
[2024-02-28] MEDS: TYLENOL 650 MG PO ×2 (05:38→09:52)
[2024-02-28 06:00] VITALS: BMI 37.8
[2024-02-28 07:32] LABS: Glucose - Point of Care 81 mg/dl (70-99)
[2024-02-28 07:35] VITALS: BP 151/71
[2024-02-28] MEDS: ADVAIR HFA 115/21 MCG INHALER 2 PUFF INH (08:13)
[2024-02-28 08:21] LABS: Hematocrit 36.4 % (37.0-47.0); Hemoglobin 12.6 g/dL (12.0-16.0); Mean Corp Hgb Conc. 34.6 g/dL (33.0-37.0); Mean Corpuscular Hgb 34.3 pg (27.0-31.0); Mean Corpuscular Volume 99.2 fL (81.0-99.0); Mean Platelet Volume 10.6 fL (7.4-10.4); Platelet Count 128 10^3/uL (130-400); Red Blood Cell Count 3.67 10^6/uL (4.20-5.40); Red Cell Dist. Width 14.1 % (11.5-14.5)
[2024-02-28 08:41] LABS: Blood Urea Nitrogen 13 mg/dl (7-17); Calcium 8.5 mg/dl (8.4-10.2); Carbon Dioxide 23 mmol/L (22-30); Chloride 103 mmol/L (98-107); Estimated Creatinine Clearance 73 ml/min; Glucose 88 mg/dl (70-99); Potassium 4.1 mmol/L (3.5-5.1); Sodium 137 mmol/L (135-145); eGFR > 60.00
[2024-02-28] MEDS: NOVOLOG FLEXPEN-LOW RESISTANCE SC ×3 (09:29→16:59)
[2024-02-28] MEDS: COZAAR 25 MG PO (09:30)
[2024-02-28] MEDS: TOPROL XL 25 MG PO (09:30)
[2024-02-28] MEDS: STERILE WATER FOR INJECTION 10 ML IV (09:30)
[2024-02-28] MEDS: ROCEPHIN 1000 MG IV (09:30)
[2024-02-28] MEDS: ASPIR LOW (ENTERIC COATED) 81 MG PO (09:30)
--- NOTE | 2024-02-28 09:56 | W.PN.HOSP.TC ---
Today's Communication/Plan
-
dc to SNF
on PO Abx and PO Lasix
repeat BMP in 3-5 days
Assessment / Plan
Assessment / Plan
88y F with PMH significant for hypertension, DM-II and COPD who presented to ED for evaluation after fall at assisted living in the evening. History obtained from patient, ED staff and review of AL documentation. Patient was found down at [place]
around 6:30PM. Fall was unwitnessed. Patient states that she was in her recliner and she fell when trying to get up to go to the bathroom. She had a noted wound / skin tear to the L lower leg but no other appreciable injuries / evident trauma.
Patent was felt to be more confused than usual as well and was sent to the ED for further evaluation and treatment.
In the ED, patient was noted to be febrile to 102 degrees. Son reports similar symptoms in the past related to infections.
At the time of examination, patient is awake and alert and perhaps mildly confused. She denies any pain. She denies any recent illness or complaints - including any urinary symptoms.
Assessment:
E. Coli and multi-drug resistant Klebsiella UTI with bacteremia
Sepsis secondary to the above (fever, leukocytosis)
Acute metabolic encephalopathy secondary to the above
- s/p sepsis protocol IVF
- continue Rocephin, day 5/14; dc on Cefdinir x 10 days further
- repeat Bcx NGTD
Fall at Home, mechanical in nature (slid down from recliner)
- PT/OT - SNF planned
possible acute HFpEF
Iatrogenic volume overload from sepsis protocol IVF
- Echo unchanged from 2016
- give additional Lasix 40mg x 1 dose today, then dc on Lasix 20mg daily (noted to be on PO Lasix twice weekly at [facility])
- follow up BMP in 3-5 days
chronic wounds POA as follows:
Chronic Venous Stasis Skin Changes. dermal skin tear LLE, pink, small ss drainage. Trace LE edema. +Palpable pedal pulses, L heel blanchable red. Sacrum mild red and intact. Multiple bruises arms and legs. Mild MASD abdominal folds.
- follow wound care recs
- DVT study negative for clots
- continue ROBERT wraps per wound care
Benign Hypertension
- continue Losartan, Toprol
DM-II
- Stable. Dx listed on assisted living record - though on no DM meds, restricted diet, etc.
- Follow glucose and cover with SSI if needed.
- A1c 5.1%
COPD without Acute Exacerbation
- Stable. No wheezing, cough, etc.
- Continue inhaled medications.
OAB
- Hold Vesicare given active infection. Would consider complete cessation if UTIs are frequent.
Obesity due to excess calories
- Affects all aspects of care.
- Encourage healthy diet and increased activity with goal of weight loss.
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
- Hepatitis panel and HIV negative
DVT Prophylaxis: Lovenox
Code Status: DNR
More than 30 minutes spent in discharge including
Final examination of the patient
Summarizing hospital stay
Instructions for continuing care to all relevant caregivers
Preparation of discharge records, prescriptions, and referral forms
Total time spent (in minutes): 41
Anticipated Discharge: Today
Subjective/Interval History
-
Date of Service: February 28, 2024
reports swelling improved
denies any chest pain or SOB
Objective Data
-
Labs:
Laboratory Results
02/28/24
07:53
WBC 8.0
Hgb 12.6
Hct 36.4 L
Plt Count 128 L
Sodium 137
Potassium 4.1
Chloride 103
Carbon Dioxide 23
BUN 13
Creatinine 0.4 L
Glucose 88
Calcium 8.5
Vital Signs:
Vital Signs
Temp Pulse Resp BP Pulse Ox
97.3 F 80 20 151/70 96
02/28/24 07:35 02/28/24 07:35 02/28/24 07:35 02/28/24 09:30 02/28/24 07:35
I&O
02/27/24 02/28/24 02/29/24
06:59 06:59 06:59
Intake Total 1320 / 1320 960 / 960
Output Total 700 / 700
Balance 1320 / 1320 260 / 260
Physical Exam
-
General: No Apparent Distress
HEENT: Normocephalic and Atraumatic
Respiratory: Crackles (faint)
Cardiac: Regular Rhythm and S1/S2
GI: Soft
Genito-urinary: No Costovertebral Tender
Neuro: AO x 3
Psych: Calm
Data Reviewed
-
Total Time Spent with Patient (in minutes): 42
Labs: Labs Reviewed by me
[2024-02-28] MEDS: DESENEX/MITRAZOL/ZEASORB 1 APPLIC TOPICAL (09:57)
--- NOTE | 2024-02-28 10:11 | W.DS.TRANS ---
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
-
Discharge Instructions:
Discharge Diagnosis/Procedures UTI with bacteremia, Fall, volume overload
requiring Lasix
Diet 2 Gram Sodium,Restrict fluids to 48 oz,Diabetic,
Carb Controlled
Activity As tolerated
Blood Work repeat BMP in 3-5 days to follow electrolytes/
renal function on daily Lasix
Other Services PT,OT
Instructions:
Stand-Alone Forms:
Changes to Home Medications: Yes
Discharge Medications:
DC Medications w/original date entered in [facility]
losartan 25 mg tablet 25 mg PO DAILY Blood Pressure 02/20/14
albuterol sulfate 90 mcg/actuation aerosol inhaler (Ventolin HFA) 2 puff inhalation Q12 PRN copd 05/01/23
aspirin 81 mg tablet,delayed release 81 mg PO DAILY Blood Clot Prevention/Tx 05/01/23
benzocaine 6 mg-menthol 10 mg lozenges (Chloraseptic Sore Throat) 1 estrella mucous membrane Q2 PRN sore throat 05/01/23
bismuth subsalicylate 262 mg/15 mL oral suspension (Pepto-Bismol) 524 mg PO Q3H PRN heartburn/indigestion 05/01/23
cranberry extract 500 mg capsule (Cranberry Concentrate) 500 mg PO DAILY Supplement 05/01/23
docusate sodium 100 mg capsule 100 mg PO DAILY Constipation 05/01/23
ergocalciferol (vitamin D2) 1,250 mcg (50,000 unit) capsule 1,250 mcg PO Q3W Supplement 05/01/23
estradiol 0.01% (0.1 mg/gram) vaginal cream 1 appful vaginal WESA Hormonal Agent 05/01/23
eyelid cleanser combination 5 (OcuSoft Lid Scrub topical pads) 1 pad topical DAILY Eye Condition 05/01/23
fluticasone 250 mcg-salmeterol 50 mcg/dose blistr powdr for inhalation (Wixela Inhub) 1 inh inhalation R BID Lung/Breathing Issues 05/01/23
methenamine mandelate 1 gram tablet 1 g PO BID Urinary Issue 05/01/23
metoprolol succinate 25 mg tablet,extended release 24 hr 25 mg PO DAILY Blood Pressure 05/01/23
nystatin 100,000 unit/gram topical powder 1 applic topical Q12H PRN redness to abd, folds, groin 05/01/23
omega 9-aga-pyw-fish oil 1,000 mg (120 mg-180 mg) capsule (Fish Oil) 2 cap PO DAILY Supplement 05/01/23
polyvinyl alcohol 1.4 % eye drops (Artificial Tears (polyvinyl alcohol)) 1 drp BOTH EYES BID Eye Condition 05/01/23
pseudoephedrine HCl 30 mg tablet (Sudogest) 30 mg PO Q6H PRN sinuses 05/01/23
sennosides 8.6 mg tablet (senna) 8.6 mg PO DAILY Constipation 05/01/23
sennosides 8.6 mg tablet (senna) 17.2 mg PO Q12H PRN constipation 05/01/23
solifenacin 10 mg tablet 10 mg PO HS Urinary Issue 05/01/23
acetaminophen 325 mg tablet (Tylenol) 650 mg PO Q4H PRN mild pain 02/23/24
bisacodyl 10 mg rectal suppository (Dulcolax (bisacodyl)) 10 mg WV DAILY PRN constipation 02/23/24
clotrimazole 1 % topical cream 1 applic topical BID 02/23/24
dextromethorphan-guaifenesin 10 mg-100 mg/5 mL oral syrup 5 ml PO Q4H PRN cough 02/23/24
primidone 50 mg tablet 100 mg PO HS 02/23/24
sodium phosphates 19 gram-7 gram/118 mL enema (Fleet Enema) 118 ml WV Q4D PRN constipation 02/23/24
cefdinir 300 mg capsule 300 mg PO BID #20 caps 02/28/24
furosemide 20 mg tablet 20 mg PO DAILY #30 tabs 02/28/24
Home Medication Changes
stop NSAIDs
Lasix to daily
Pending Results: No
Total time spent discharging patient (in min): 42
[2024-02-28] MEDS: LASIX 40 MG IV (10:56)
[2024-02-28 11:36] LABS: Glucose - Point of Care 128 mg/dl (70-99)
--- NOTE | 2024-02-28 11:55 | CM ---
Addendum entered by Shameka Magana 02/28/24 12:32:
IMM provided to Emerald; she was unable to sign the form due to tremors, but gave verbal consent. She is happy to be going home today.
Original Note:
CM following for discharge planning; return to [facility] today via w/c van at 5:45pm; cost $115. Pt's son, Orlando Dean was contacted and advised of discharge plan via wheelchair and provided with cost of same. He will call to make
payment.
Plan: Discharge to [facility] today via w/c van. Family is aware of discharge plans.
[facility] Report:[phone]
[facility]
--- NOTE | 2024-02-28 12:35 | CM ---
CM assisted Emerald with lunch and dinner orders at her request. She was thankful for the assistance.
[2024-02-28 15:49] VITALS: BP 105/60
[2024-02-28 16:51] LABS: Glucose - Point of Care 113 mg/dl (70-99)
== END 2024-02-28 18:23 | DRG 871 ==
LOC: 4 EAST ACU 05:17
PROVIDERS: Internal Medicine; ADMITTING PHYSICIAN Hospitalist; ATTENDING PHYSICIAN Internal Medicine; EMERGENCY PHYSICIAN Student in an Organized Health Care Education/Training Program; FAMILY PHYSICIAN Internal Medicine
DX: A41.51 Sepsis due to Escherichia coli [E. coli] (principal); G93.41 Metabolic encephalopathy; I50.31 Acute diastolic (congestive) heart failure; N39.0 Urinary tract infection, site not specified; Z16.24 Resistance to multiple antibiotics; Z66 Do not resuscitate; J44.9 Chronic obstructive pulmonary disease, unspecified; E11.9 Type 2 diabetes mellitus without complications; I10 Essential (primary) hypertension; E87.70 Fluid overload, unspecified; E66.09 Other obesity due to excess calories; I87.8 Other specified disorders of veins; N32.81 Overactive bladder; W46.0XXA Contact with hypodermic needle, initial encounter; S41.139A Puncture wound without foreign body of unspecified upper arm, initial encounter; B96.1 Klebsiella pneumoniae [K. pneumoniae] as the cause of diseases classified elsewhere; M19.90 Unspecified osteoarthritis, unspecified site; S81.812A Laceration without foreign body, left lower leg, initial encounter; Z96.649 Presence of unspecified artificial hip joint; Z68.37 Body mass index [BMI] 37.0-37.9, adult; W06.XXXA Fall from bed, initial encounter; Z11.52 Encounter for screening for COVID-19; Z88.5 Allergy status to narcotic agent; Z88.2 Allergy status to sulfonamides; Z88.8 Allergy status to other drugs, medicaments and biological substances; Z79.82 Long term (current) use of aspirin; Z79.899 Other long term (current) drug therapy
CPT/HCPCS: 70450; 71046; 76775; 80048; 80053; 81003; 81015; 82962; 83036; 83605; 85025; 85027; 86704; 86705; 86706; 86708; 86709; 86803; 87040; 87070; 87077; 87086; 87149; 87186; 87205; 87340; 87389; 87502; 87811; 93005; 93306; 93970; 94640; 96361; 96365; 97116; 97162; 97166; 97535; 99291; Q9950